=== PATIENT | female | born 1945 | race Caucasian/White ===

== ENCOUNTER 2024-12-15 19:19 | Inpatient (IN) | payer MEDICARE, BC, SELFPAY ==
[2024-12-15 19:20] VITALS: BP 136/79; PULSE 86; RESP 18; TEMP 36.4; O2SAT 96; BMI 22.4
--- NOTE | 2024-12-15 19:24 | ECG_ITS ---
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
--- NOTE | 2024-12-15 19:24 | CTR_ITS ---
PROCEDURE INFORMATION: Exam: CT Head Without Contrast Exam date and time: 12/15/2024 7:28 PM Age: 79 years old Clinical indication: Stroke-like symptoms; Dizziness/giddiness; Eleazar lower extremity weakness; Additional info: Symptoms of acute stroke TECHNIQUE: Imaging protocol: Computed tomography of the head without contrast. Radiation optimization: All CT scans at this facility use at least one of these dose optimization techniques: automated exposure control; mA and/or kV adjustment per patient size (includes targeted exams where dose is matched to clinical indication); or iterative reconstruction. Other technique: STROKE PROTOCOL was implemented. COMPARISON: No relevant prior studies available. RADIATION DOSE METRICS: Total DLP (mGy-cm): 1069.58 FINDINGS: Brain: There is mkqt-tf-tojztxip cerebral atrophy. There are wtlj-oq-ldqieord deep white matter microangiopathic ischemic changes. No acute hemorrhage is identified. No mass or mass effect is identified. Cerebral ventricles: Moderately dilated ventricles secondary to atrophy. Paranasal sinuses: Trace right maxillary mucosal thickening. The paranasal sinuses are otherwise clear. Mastoid air cells: The mastoid air cells are clear. Bones: Charly foramen magnum incidentally noted. No acute osseous abnormalities are seen. Soft tissues: The soft tissues are within normal limits. CT/CT head thrombolytic [id number] IMPRESSION: 1. No acute intracranial pathology. 2. Senescent changes. ASSESSMENT: ASPECTS ([place] Stroke Program Early CT Score) is 10.
--- NOTE | 2024-12-15 19:26 | ED_ITS ---
HPI - Neuro Symptoms/Deficit 2 General: Chief Complaint: Neuro Symptoms/Deficit Stated Complaint: n/v, high bs Time Seen by Provider: 12/15/24 19:20 Source: patient and EMS Mode of arrival: EMS Limitations: no limitations History of Present Illness: 79-year-old female who states that at 5 PM she started having severe dizziness states she had been having a hard time walking has been having nausea vomiting. She states it is much worse with movement she has a history of diabetes glucose with EMS was in the 300s. She denies any headache denies any speech problems denies any vision deficits Associated symptoms: Reports vertigo; Deny chest pain, headache(s), nausea or vomiting Related Data Home Medications ?Medication ?Instructions ?Recorded ?Confirmed atorvastatin 10 mg tablet 10 mg PO DAILY 01/06/2406/16 dapagliflozin propanediol 10 mg 10 mg PO DAILY 4 07/10/24 tablet (Farxiga) glyburide 2.5 mg tablet 2.5 mg PO DAILY 01/06/24 lisinopril 5 mg tablet 5 mg PO DAILY 01/06/2407/10 tirzepatide 5 mg/0.5 mL mg SUBCUT 07/10/24 07/10/24 subcutaneous pen injector (Mounjaro) Allergies Allergy/AdvReac Type Severity Reaction Status Date / Time No Known Allergies Allergy Verified 04/24/24 09:04 Review of Systems 2 Const: Denies: fever(s), chills, body aches or change in appetite Eyes: Denies: blurry vision or eye discomfort ENMT: Denies: throat pain or dental pain Card: Denies: chest pain Resp: Denies: dyspnea GI: Denies: abdominal pain, nausea, vomiting or diarrhea Musc: Denies: neck pain or back pain Skin/Breast: Denies: rash Neuro: Reports: difficulty walking, dizziness and vertigo; Denies: headache(s) PFSH ED 2 PFSH: Social History Smoking and tobacco/nicotine status: never used tobacco/nicotine NIH stroke score 2 NIHSS: Level Of Consciousness - 1a: 0 Level Of Consciousness Commands - 1c: Both Correct Best Gaze - 2: Normal Visual Starr - 3: No Visual Loss F acial Palsy - 4: Normal Motor Arm Right - 5: No Drift Motor Arm Left - 5: No Drift Motor Leg Right - 6: No Drift Motor Leg Left - 6: No Drift L imb Ataxia - 7: Absent Sensory - 8: Normal Best Language - 9: No Aphasia Dysarthia - 10: Normal Extinction And Inattention - 11: 0 Physical Exam 2 Const: COMMON NORMALS: no acute distress, patient oriented x3 and healthy appearing HENMT: COMMON NORMALS: normocephalic and atraumatic HEAD & SCALP: n ormocephalic and atraumatic Eye: COMMON NORMALS: Equal, round and reactive pupils present and EOMs intact bilaterally PUPIL: Yes Equal, round and reactive pupils present OTHER: Beating nystagmus when looking to the right Neck/C-Spine: COMMON NORMALS: full ROM and supple Chest: COMMONS NORMALS: normal inspection of the chest Resp: COMMON NORMALS: normal respiratory effort, No retractions, No use of accessory muscles and clear to auscultation bilaterally AUSCULTATION: clear to auscultation bilaterally Cardio: COMMON NORMALS: regular rate, regular rhythm and No murmurs present (Cardio) RATE: regular rate RHYTHM: regular rhythm Extremity: COMMON NORMALS: normal to inspection and full ROM Neuro: COMMON NORMALS: patient oriented x3, moves all extremities and no focal motor deficits CRANIAL NERVES: Yes CN normal except as noted SPEECH: s peech normal GAIT: Yes Ataxic gait present MOTOR EXAM: 5/5 motor strength present throughout Psych: COMMON NORMALS: mental status grossly normal, Normal thought process present and cooperative THOUGHT PROCESS: Normal thought process present Skin: COMMON NORMALS: no rashes or lesions noted and no wounds GENERAL SKIN EXAM: no rashes or lesions noted Course 2 Vital Signs: Vital signs: Vital Signs Temperature 97.5 F L 12/15/24 19:20 Pulse Rate 76 12/15/24 19:28 Respiratory Rate 20 H 12/15/24 19:28 Blood Pressure 125/77 12/15/24 19:28 Pulse Oximetry 95 12/15/24 19:28 Oxygen Delivery Me thod Room Air 12/15/24 19:28 MDM - Neuro Symptoms/Deficit Medical Decision Making Patient presents here with vertigo she been having some difficulty walking it is mainly with movement she has no vertigo at rest patient was evaluated by a neurologist at [facility] who believed it is likely peripheral did not recommend TNKase. Patient continues to feel weak and nauseous spoke to hospitalist will admit at this time Medical Records I reviewed the patient's medical records. Lab Data I reviewed the patient's lab results. 12/15/24 18:41 12/15/24 18:[address] 12/15/24 19:24 IMPRESSION: 1. No acute intracranial pathology. 2. Senescent changes. ASSESSMENT: ASPECTS ([place] Stroke Program Early CT Score) is 10. ADDENDUM: 12/15/241942 ADDENDUM: THIS REPORT CONTAINS FINDINGS THAT MAY BE CRITICAL TO PATIENT CARE. The findings were verbally communicated via telephone conference with DANIEL COONEY at 7:41 PM CDT on 12/15/2024. The findings were acknowledged and understood. Chest X-Ray 12/15/24 20:32 IMPRESSION: 1. 9 mm right lower lobe pulmonary nodule, likely calcified. Recommend comparison to prior imaging versus nonemergent CT chest as indicated. 2. No acute cardiopulmonary disease. Laboratory Results WBC 9.73 10^3/uL (3.29-11.43) 12/15/24 18:41 RBC 4.82 10^6/uL (3.85-5.65) 12/15/24 18:41 Hgb 13.90 g/dL (11.27-16.99) 12/15/24 18:41 Hct 41.2 % (36-47) 12/15/24 18:41 MCV 85.5 fl (85-98) 12/15/24 18:41 MCH 28.8 pg (27-33) 12/15/24 18:41 MCHC 33.7 g/dL (30-55) 12/15/24 18:41 RDW 12.8 % (12.1-15.1) 12/15/24 18:41 Plt Count 188 10^3/cmm (157-399) 12/15/24 18:41 MPV 10.6 fL (7.4-10.4) H 12/15/24 18:41 Neut % (Auto) 48.0 % 12/15/24 18:41 Lymph % (Auto) 41.7 % 12/15/24 18:41 [place] % (Auto) 6.6 % 12/15/24 18:41 Eos % (Auto) 2.8 % 12/15/24 18:41 Baso % (Auto) 0.6 % 12/15/24 18:41 Neut # (Auto) 4.67 10^3/uL (1.8-7.7) 12/15/24 18:41 Lymph # (Auto) 4.1 10^3/uL (0.8-4.8) 12/15/24 18:41 [place] # (Auto) 0.6 10^3/uL (0.2-0.9) 12/15/24 18:41 Eos # (Auto) 0.3 10^3/uL (0.0-0.8) 12/15/24 18:41 Baso # (Auto) 0.1 10^3/uL (0.0-0.1) 12/15/24 18:41 Nucleated RBC % (auto) 0 % 12/15/24 18:41 Nucleated RBCs # 0.0 /100WBC 12/15/24 18:41 PT 12.40 SECONDS (12.1-14.9) 12/15/24 18:41 INR 0.86 (0.8-1.2) 12/15/24 18:41 APTT 21.9 SECONDS (23.9-36.7) L 12/15/24 18:41 Sodium 133 mmol/L (136-145) L 12/15/24 18:41 Potassium 3.2 mmol/L (3.5-5.1) L 12/15/24 18:41 Chloride 95 mmol/L (98-107) L 12/15/24 18:41 Carbon Dioxide 18 mmol/L (22-29) L 12/15/24 18:41 Anion Gap 23.2 (5-19) H 12/15/24 18:41 BUN 22 mg/dL (8-23) 12/15/24 18:41 Creatinine 0.9 mg/dL (0.5-0.9) 12/15/24 18:41 GFR Calculation Not Reportable 12/15/24 18:41 Glucose 352 mg/dL (65-115) H 12/15/24 18:41 POC Glucose 299 mg/dL (70-110) H 12/15/24 19:21 Calculated Osmolality 293 mOsm/kg (285-295) 12/15/24 18:41 Calcium 9.5 mg/dL (8.5-10.5) 12/15/24 18:41 Total Bilirubin 0.6 mg/dL (0.15-1.2) 12/15/24 18:41 AST 23 U/L (0-32) 12/15/24 18:41 ALT 25 U/L (0-33) 12/15/24 18:41 Alkaline Phosphatase 125 U/L (35-105) H 12/15/24 18:41 NT-Pro-B Natriuret Pep 177 pg/mL (0-450) 12/15/24 18:41 Total Protein 7.1 g/dL (6.6-8.7) 12/15/24 18:41 Albumin 4.4 g/dL (3.5-5.2) 12/15/24 18:41 Globulin 2.7 g/dL (1.3-4.6) 12/15/24 18:41 All radiology interpretation(s) finalized by discharge EKG Data EKG 1: I personally reviewed and interpreted this EKG as follows: EKG interpretation date: 12/15/24 EKG interpretation time: 19:39 Interpretation: nsr hr [address] or t wave abnormalities qrs 96 qtc 456 Discharge Plan Discharge Patient Disposition: Admitted As Inpatient Clinical Impression: Vertigo, Weakness, Hyperglycemia Condition: Stable Coding Level of Care Code 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
[2024-12-15 19:28] VITALS: BP 125/77; BP 130/84; PULSE 76; RESP 20; O2SAT 95
[2024-12-15 19:30] LABS: Hematocrit 41.2 % (36-47); Hemoglobin 13.90 g/dL (11.27-16.99); Mean Corpuscular HGB Conc 33.7 g/dL (30-55); Mean Corpuscular Hemoglobin 28.8 pg (27-33); Mean Corpuscular Volume 85.5 fl (85-98); Nucleated Red Blood Cells % 0 %; Platelet Count 188 10^3/cmm (157-399); Red Blood Count 4.82 10^6/uL (3.85-5.65); White Blood Count 9.73 10^3/uL (3.29-11.43)
[2024-12-15] MEDS: ondansetron 2 mg/ML SDV 2 mL 4 MG IVP (19:40)
[2024-12-15 19:44] LABS: INR 0.86 (0.8-1.2); Partial Thromboplastin Time 21.9 SECONDS (23.9-36.7); Prothrombin Time 12.40 SECONDS (12.1-14.9)
[2024-12-15 19:49] LABS: Alanine Aminotransferase 25 U/L (0-33); Albumin Level 4.4 g/dL (3.5-5.2); Alkaline Phosphatase 125 U/L (35-105); Anion Gap 23.2 (5-19); Aspartate Amino Transferase 23 U/L (0-32); Blood Urea Nitrogen 22 mg/dL (8-23); Calcium 9.5 mg/dL (8.5-10.5); Carbon Dioxide 18 mmol/L (22-29); Chloride 95 mmol/L (98-107); Creatinine Clr Calc Pharmacy 46.9643; Globulin 2.7 g/dL (1.3-4.6); Glucose 352 mg/dL (65-115); Osmolality Calculated 293 mOsm/kg (285-295); Potassium 3.2 mmol/L (3.5-5.1); Sodium 133 mmol/L (136-145); Total Protein 7.1 g/dL (6.6-8.7)
[2024-12-15 20:30] VITALS: BP 123/64; PULSE 68; RESP 23; O2SAT 98
--- NOTE | 2024-12-15 20:32 | XRR_ITS ---
PROCEDURE INFORMATION: Exam: XR Chest Exam date and time: 12/15/2024 8:42 PM Age: 79 years old Clinical indication: Shortness of breath; Additional info: SOB TECHNIQUE: Imaging protocol: Radiologic exam of the chest. Views: 1 view. COMPARISON: No relevant prior studies available. FINDINGS: Lungs: No pulmonary consolidation. 9 mm right lower lobe pulmonary nodule, likely calcified. Mild interstitial prominence likely reflecting chronic lung change. Pleural spaces: No pleural effusion or pneumothorax. Heart/Mediastinum: Heart size is within normal limits. Vasculature: Atherosclerotic calcifications of the aorta are noted. Bones/joints: No acute osseous abnormalities are seen. XR/XR chest 1V portable [id number] IMPRESSION: 1. 9 mm right lower lobe pulmonary nodule, likely calcified. Recommend comparison to prior imaging versus nonemergent CT chest as indicated. 2. No acute cardiopulmonary disease.
[2024-12-15 21:00] VITALS: BP 127/87; PULSE 75; RESP 17; O2SAT 98
[2024-12-15 21:25] LABS: NT Pro B Type Natriuretic Pept 177 pg/mL (0-450)
[2024-12-15 21:59] LABS: PCP Screen Urine Negative (Negative)
[2024-12-15 22:00] VITALS: BP 125/78; PULSE 65; RESP 17; O2SAT 95
--- NOTE | 2024-12-15 22:07 | PM.HP ---
Providers/Chief Complaint Admitting Physician: CULLEN DON DO--- seen and evaluated before midnight Primary Care Provider: Jada Mcclure Chief Complaint: n/v, high bs History of Present Illness Nena Yusuf is a 79 year old female with medical history significant for diabetes high blood pressure a hyperlipidemia and benign positional vertigo no history of TIA no CVA, who had presented with an instant ambulatory dysfunction with dizziness unable to walk because of dizziness and did not seem to coordinate very well to walk because of the feeling of heart risks of passing out. Patient related that she had had similar episode but it kind of went away and did not live much longer. This time patient related that she was in the kitchen cooking and it just came over her where her legs could not move and she felt like she was, pass out and she leaned against the refrigerator because of much dizziness that came over her and she could not walk without having a wobbling gait. For this reason patient came to the emergency room for further optimization of care. The ED doctor called telestroke from [facility] and [facility] and they did not think patient was having any stroke and recommended MRI if the patient is not getting any better. I have been consulted to see the patient. I have seen and evaluated patient patient is doing much better he said patient had received meclizine from the emergency room and had also given antiemetic I called this morning have the nurse related to me she was able to walk and feel normal now. I had initiated some Valium and meclizine overnight and patient had done remarkably well and feeling okay. This being said I will not order MRI I will leave this up to the rounding team. Patient is feeling much better and feels that she will be able to go home. And because the patient had had nausea vomiting coming in and had had antiemetics will have the patient eat and see how she tolerates meal before anyone will discharge her home and also allow chance for the rounding team to see the patient and make sure that she is medically stable to go home. Review of Systems Narrative: System review upon 10 organ review were significant for ambulatory dysfunction what looks like a new rule vascular processes. This had terminated and patient is doing much better compared to the time she came to the emergency room Medications/Allergies Home Medications ?Medication ?Instructions ?Recorded ?Confirmed ?Last Taken ?Type atorvastatin 10 mg tablet 10 mg PO DAILY 01/06/24 07/10/24 Unknown History dapagliflozin propanediol 10 mg 10 mg PO DAILY 01/06/24 07/10/24 Unknown History tablet (Farxiga) glyburide 2.5 mg tablet 2.5 mg PO DAILY 01/06/24 07/10/24 Unknown History lisinopril 5 mg tablet 5 mg PO DAILY 01/06/24 07/10/24 Unknown History tirzepatide 5 mg/0.5 mL mg SUBCUT 07/10/24 07/10/24 Unknown History subcutaneous pen injector (Mounjaro) Allergies Allergy/AdvReac Type Severity Reaction Status Date / Time No Known Allergies Allergy Verified 04/24/24 09:04 PFSH Acute PFSH: Medical History (Updated 12/16/24 @ 06:24 by Cullen Don MD) Diabetes Social History Smoking and tobacco/nicotine status: never used tobacco/nicotine Vitals/I&O/Wt Last Vital Signs Temp 97.5 F L 12/15/24 19:20 Pulse 76 12/15/24 19:28 Resp 20 H 12/15/24 19:28 BP 125/77 12/15/24 19:28 Pulse Ox 95 12/15/24 19:28 O2 Del Method Room Air 12/15/24 19:28 Weight last 48 hrs Weight 61.235 kg Physical Exam Narrative: General The patient looks well in no apparent distress at this time compared to admission at presentation. HEENT normocephalic atraumatic neck neck is supple cardiovascular heart is regular lungs are pretty much clear abdomen soft nontender nondistended unremarkable extremities are intact no edema has good pulses neurology he has no focality lab studies lab studies reviewed and noted Data 12/16/24 05:44 12/15/24 18:41 A&P Assessment and plan 1. Weakness: Patient has generalized weakness and feeling much better after a restful night sleep Will continue to monitor and optimize Patient is a ED hold because of lack of bed 2. Vertigo: Leading diagnosis is benign positional vertigo at this time Patient is doing better and through the night Since patient is improving I am not get an MRI at this time because this was recommended if patient is not improving I will leave the final decision for the rounding team if they feel the patient needs to have an MRI they can do so. Patient had gotten up ambulated with the nurse this morning and feeling that he is doing okay Patient is on meclizine and Valium as prescribed and this had helped the patient at this time This is not the first time patient is having this event must continue to watch closely and optimize Nausea and vomiting has stopped must make sure patient is tolerating food before being discharged. 3. Hyperglycemia: Continue patient home medication patient did not eat yesterday for dinner Cautious and keep patient euglycemic 4. Nausea and vomiting: Patient responded to antiemetic May feed this patient this morning and see how patient does Patient able to tolerate oral and doing okay they have primary team who discharged when medically stable and if they do not feel that patient needs to have an MRI MRI was recommended if patient was not improving or doing well. Patient is at this time Continue to treat and optimize Plan: GI and DVT prophylaxis in place PDMP PDMP Reviewed: Last Reviewed 12/16/24 06:26 by Cullen Don MD Attestations Medical Necessity Statement*: Patient had had nausea and vomiting with ambulatory dysfunction associated with dizziness must need at least 2 midnights for optimization of care unless patient gets better and quicker prior to that time Coding Level of Care Code 37992 Diagnoses Weakness R53.1 Vertigo R42 Hyperglycemia R73.9 Nausea and vomiting R11.2 Time Spent (min) 60
[2024-12-15 22:15] LABS: Add Urine Microscopic? YES; Glucose Urine UA 3+ (Normal); Nitrate Urine Negative (Negative); Specific Gravity, Urine 1.030 (1.005-1.030)
[2024-12-15] MEDS: pantoprazole 40 mg SDV IVP (23:21)
[2024-12-16] VITALS: BP 116/70; PULSE 69; RESP 14; O2SAT 97
[2024-12-16 04:00] VITALS: BP 120/60; PULSE 60; RESP 13; O2SAT 96
[2024-12-16 06:02] LABS: Hematocrit 36.4 % (36-47); Hemoglobin 11.90 g/dL (11.27-16.99); Mean Corpuscular HGB Conc 32.7 g/dL (30-55); Mean Corpuscular Hemoglobin 28.7 pg (27-33); Mean Corpuscular Volume 87.7 fl (85-98); Nucleated Red Blood Cells % 0 %; Platelet Count 156 10^3/cmm (157-399); Red Blood Count 4.15 10^6/uL (3.85-5.65); White Blood Count 8.23 10^3/uL (3.29-11.43)
[2024-12-16 06:22] LABS: Alanine Aminotransferase 17 U/L (0-33); Albumin Level 3.3 g/dL (3.5-5.2); Alkaline Phosphatase 102 U/L (35-105); Anion Gap 14.3 (5-19); Aspartate Amino Transferase 18 U/L (0-32); Blood Urea Nitrogen 17 mg/dL (8-23); Calcium 8.8 mg/dL (8.5-10.5); Carbon Dioxide 23 mmol/L (22-29); Chloride 106 mmol/L (98-107); Creatinine Clr Calc Pharmacy 52.8348; Globulin 2.1 g/dL (1.3-4.6); Glucose 157 mg/dL (65-115); Magnesium 2.0 mg/dL (1.7-2.3); Osmolality Calculated 293 mOsm/kg (285-295); Potassium 4.3 mmol/L (3.5-5.1); Sodium 139 mmol/L (136-145); Total Protein 5.4 g/dL (6.6-8.7)
--- NOTE | 2024-12-16 07:09 | PC.NURSE ---
THIS NURSE ASSUMED CARE @ [id number].
--- NOTE | 2024-12-16 08:24 | PC.NURSE ---
PATIENT UP TO BEDSIDE COMMODE. PATIENT STILL DIZZY WHEN GETTING UP. TECH AT BEDSIDE STATES SHE STUMBLED WHEN STANDING.
[2024-12-16 09:31] VITALS: BP 133/79; PULSE 68; RESP 16; O2SAT 98
[2024-12-16] MEDS: ATORVASTATIN 10 MG TABLET PO (09:34)
--- NOTE | 2024-12-16 09:38 | PC.NURSE ---
PATIENT REFUSING HEPARIN UNTIL SHE SPEAKS TO HER PROVIDER.
--- NOTE | 2024-12-16 11:09 | MR_ITS ---
WS: [id number] MRI HEAD WITHOUT CONTRAST TECHNIQUE: Sagittal T1, T2 axial, T2 axial FLAIR, axial and coronal T1 images, axial susceptibility weighted imaging, axial diffusion weighted images, and coronal T2 images were obtained. CLINICAL INFORMATION: assess for posterior circulation stroke COMPARISON: CT 12/15/24 FINDINGS: No evidence of restricted diffusion to suggest acute ischemia. Ventricular system and basal cisterns are patent. Moderate to advanced small vessel changes. Mild parenchymal volume loss. Normal vascular flow voids at the skull base. No extra-axial fluid collections. Mild mucosal thickening in the ethmoid air cells. Mastoid air cells are well aerated. No hemosiderin on the susceptibility weighted images. Normal optic chiasm and pituitary infundibulum. Moderate symmetric atrophy temporal lobes and hippocampal formations. Incidental sheila cisterna magna. MR/MR head wo con* [id number] IMPRESSION: 1. No evidence of restricted diffusion to suggest acute ischemia. 2. Moderate to advanced small vessel changes with mild parenchymal volume loss . 3. No hemosiderin on the susceptibility weighted images. 4. No other acute findings.
[2024-12-16 13:44] VITALS: BP 128/72; BP 132/63; BP 143/72; PULSE 62; PULSE 70; PULSE 72
[2024-12-16 13:45] VITALS: BP 143/72; PULSE 72; O2SAT 96
--- NOTE | 2024-12-16 13:46 | PC.NURSE ---
PATIENT ABLE TO AMBULATE AROUND ROOM AND TO RESTROOM WITHOUT DIFFICULTY OR DIZZINESS.
[2024-12-16 13:51] VITALS: BP 143/72; PULSE 66; O2SAT 99
--- NOTE | 2024-12-16 15:07 | P.DS_ITS ---
Discharge Providers Date of Admission: 12/15/24 21:08 Date of Discharge: December 16, 2024 Attending Provider at Admission: Doreen Santos MD Attending Provider at Discharge: Yanet Ascencio MD Primary Care Provider: Jada Mcclure Diagnoses at Discharge Discharge Diagnosis 1. Weakness: 2. Vertigo: 3. Hyperglycemia: 4. Nausea and vomiting: Reason for Visit Reason for Visit: n/v, high bs Brief History: Nena Yusuf is a 79 year old female with medical history significant for diabetes high blood pressure a hyperlipidemia and benign positional vertigo no history of TIA no CVA, presented to the hospital last night with chief complaints of dizziness and incoordination. She states that she has had episodic dizziness on and off for about a year. Her symptoms appear to have started about a year ago after having had what appears to be a middle ear infection as she reported hearing loss at the same time. Initially a stroke code was called upon presentation to the emergency room, it appears stroke team was consulted, stroke was ruled out therefore patient did not receive any thrombolysis. Patient received a trial of meclizine and antiemetics in the emergency room following which patient's symptoms improved. She had also received some Valium overnight. Orthostatic vital signs were noted to be normal. Patient denied any loss of consciousness. MRI of the brain was completed to rule out any posterior circulation stroke and the study was negative for the same. Patient was able to get out of bed and walk this morning with minimal discomfort. She did report some persisting mild intermittent dizziness for which oral meclizine prescription was provided at discharge. Potentially symptoms may be related to inner ear pathology given also reported hearing loss in the right ear. Referral has been provided to ENT as an outpatient. She is being discharged today in improved condition. Physical Exam Narrative: General: No acute distress, AO x3 HEENT: PERRLA, pupils bilaterally equal and reactive, pallors not present Chest: Normal vesicular breath sounds, no added sounds, equal good air entry bilaterally CVS: S1-S2 regular, no murmurs, no tachycardia, no gallops, no rubs Abdomen: Soft, nontender, no organomegaly, bowel sounds present Neuro: No focal deficits, no facial deformity, AO x3, power 5/5 in all limbs Discharge Data Studies Completed and Pending Completed Studies During Hospitalization Category Date Time Status CT head thrombolytic 23501 Stat Cat Scan 12/15/24 19:24 Completed CXRP [XR chest 1V portable [id number]] Stat Exams 12/15/24 20:32 Completed MR head wo con* [id number] Routine MRI 12/16/24 11:09 Completed Radiology Impressions Head CT 12/15/24 19:24 IMPRESSION: 1. No acute intracranial pathology. 2. Senescent changes. ASSESSMENT: ASPECTS ([place] Stroke Program Early CT Score) is 10. ADDENDUM: 12/15/241942 ADDENDUM: THIS REPORT CONTAINS FINDINGS THAT MAY BE CRITICAL TO PATIENT CARE. The findings were verbally communicated via telephone conference with DANIEL COONEY at 7:41 PM CDT on 12/15/2024. The findings were acknowledged and understood. Chest X-Ray 12/15/24 20:32 IMPRESSION: 1. 9 mm right lower lobe pulmonary nodule, likely calcified. Recommend comparison to prior imaging versus nonemergent CT chest as indicated. 2. No acute cardiopulmonary disease. Head MRI 12/16/24 11:09 IMPRESSION: 1. No evidence of restricted diffusion to suggest acute ischemia. 2. Moderate to advanced small vessel changes with mild parenchymal volume loss. 3. No hemosiderin on the susceptibility weighted images. 4. No other acute findings. Laboratory Results WBC 8.23 10^3/uL (3.29-11.43) 12/16/24 05:44 RBC 4.15 10^6/uL (3.85-5.65) 12/16/24 05:44 Hgb 11.90 g/dL (11.27-16.99) 12/16/24 05:44 Hct 36.4 % (36-47) 12/16/24 05:44 MCV 87.7 fl (85-98) 12/16/24 05:44 MCH 28.7 pg (27-33) 12/16/24 05:44 MCHC 32.7 g/dL (30-55) 12/16/24 05:44 RDW 12.9 % (12.1-15.1) 12/16/24 05:44 Plt Count 156 10^3/cmm (157-399) L 12/16/24 05:44 MPV 10.5 fL (7.4-10.4) H 12/16/24 05:44 Neut % (Auto) 66.2 % 12/16/24 05:44 Lymph % (Auto) 25.5 % 12/16/24 05:44 [place] % (Auto) 6.9 % 12/16/24 05:44 Eos % (Auto) 0.5 % 12/16/24 05:44 Baso % (Auto) 0.5 % 12/16/24 05:44 Neut # (Auto) 5.45 10^3/uL (1.8-7.7) 12/16/24 05:44 Lymph # (Auto) 2.1 10^3/uL (0.8-4.8) 12/16/24 05:44 [place] # (Auto) 0.6 10^3/uL (0.2-0.9) 12/16/24 05:44 Eos # (Auto) 0.0 10^3/uL (0.0-0.8) 12/16/24 05:44 Baso # (Auto) 0.0 10^3/uL (0.0-0.1) 12/16/24 05:44 Nucleated RBC % (auto) 0 % 12/16/24 05:44 Nucleated RBCs # 0.0 /100WBC 12/16/24 05:44 PT 12.40 SECONDS (12.1-14.9) 12/15/24 18:41 INR 0.86 (0.8-1.2) 12/15/24 18:41 APTT 21.9 SECONDS (23.9-36.7) L 12/15/24 18:41 Sodium 139 mmol/L (136-145) 12/16/24 05:44 Potassium 4.3 mmol/L (3.5-5.1) 12/16/24 05:44 Chloride 106 mmol/L (98-107) 12/16/24 05:44 Carbon Dioxide 23 mmol/L (22-29) 12/16/24 05:44 Anion Gap 14.3 (5-19) 12/16/24 05:44 BUN 17 mg/dL (8-23) 12/16/24 05:44 Creatinine 0.8 mg/dL (0.5-0.9) 12/16/24 05:44 GFR Calculation Not Reportable 12/16/24 05:44 Glucose 157 mg/dL (65-115) H 12/16/24 05:44 POC Glucose 213 mg/dL (70-110) H 12/16/24 12:26 Calculated Osmolality 293 mOsm/kg (285-295) 12/16/24 05:44 Calcium 8.8 mg/dL (8.5-10.5) 12/16/24 05:44 Phosphorus 4.0 mg/dL (2.5-4.5) 12/16/24 05:44 Magnesium 2.0 mg/dL (1.7-2.3) 12/16/24 05:44 Total Bilirubin 0.5 mg/dL (0.15-1.2) 12/16/24 05:44 AST 18 U/L (0-32) 12/16/24 05:44 ALT 17 U/L (0-33) 12/16/24 05:44 Alkaline Phosphatase 102 U/L (35-105) 12/16/24 05:44 NT-Pro-B Natriuret Pep 177 pg/mL (0-450) 12/15/24 18:41 Total Protein 5.4 g/dL (6.6-8.7) L D 12/16/24 05:44 Albumin 3.3 g/dL (3.5-5.2) L 12/16/24 05:44 Globulin 2.1 g/dL (1.3-4.6) 12/16/24 05:44 Urine Color Yellow (Yellow) 12/15/24 21:40 Urine Appearance Clear (CLEAR) 12/15/24 21:40 Urine pH 6.0 (5-7) 12/15/24 21:40 Ur Specific [place] 1.030 (1.005-1.030) 12/15/24 21:40 Urine Protein Negative (Negative) 12/15/24 21:40 Urine Glucose (UA) 3+ (Normal) H 12/15/24 21:40 Urine Ketones 1+ (Negative) H 12/15/24 21:40 Urine Blood Negative (Negative) 12/15/24 21:40 Urine Nitrate Negative (Negative) 12/15/24 21:40 Urine Bilirubin Negative (Negative) 12/15/24 21:40 Urine Urobilinogen 0.2 mg/dL (Negative) 12/15/24 21:40 Ur Leukocyte Esterase Negative (Negative) 12/15/24 21:40 Urine RBC 0-2 /hpf (0-2) 12/15/24 21:40 Urine WBC 0-5 /hpf (0-5) 12/15/24 21:40 Ur Squamous Epith Cells 0-5 /hpf (0-5) 12/15/24 21:40 Amorphous Sediment Not Reportable 12/15/24 21:40 Urine Bacteria None seen /hpf (NONE) 12/15/24 21:40 Hyaline Casts 0-4 /lpf H 12/15/24 21:40 Urine Opiates Screen Negative ng/mL (Negative) 12/15/24 21:40 Ur Barbiturates Screen Negative ng/mL (Negative) 12/15/24 21:40 Ur Phencyclidine Scrn Negative ng/mL (Negative) 12/15/24 21:40 Ur Amphetamines Screen Negative ng/mL (Negative) 12/15/24 21:40 U Benzodiazepines Scrn Negative ng/mL (Negative) 12/15/24 21:40 Urine Cocaine Screen Negative ng/mL (Negative) 12/15/24 21:40 U Marijuana (THC) Screen Negative ng/mL (Negative) 12/15/24 21:40 Vitals Last Vital Signs Temp 97.5 F L 12/15/24 19:20 Pulse 66 12/16/24 13:51 Resp 16 12/16/24 09:31 BP 143/72 12/16/24 13:51 Pulse Ox 99 12/16/24 13:51 O2 Del Method Room Air 12/16/24 13:45 Discharge Plan Discharge Patient Disposition: Home Condition: Stable Prescriptions: New meclizine 25 mg tablet 25 mg PO TID PRN (Reason: dizziness) Qty: 30 0RF Continued dapagliflozin propanediol [Farxiga] 10 mg tablet 10 mg PO DAILY lisinopril 5 mg tablet 5 mg PO DAILY multivitamin Tablet 1 tab PO QAM magnesium 200 mg Tablet 200 mg PO BID cinnamon bark [Cinnamon] 500 mg Capsule 500 mg PO TID cholecalciferol (vitamin D3) [Vitamin D3] 50 mcg (2,000 unit) Tablet 50 mcg PO DAILY insulin glargine-yfgn 100 unit/mL (3 mL) insulin pen 18 unit SUBCUT BID Ozempic 0.25 mg or 0.5 mg (2 mg/3 mL) pen injector 0.25 mg SUBCUT Q7D Rx Instructions: Sundays berberine chloride 500 mg Capsule 500 mg PO BID Discharge Order = DC NOW: Discharge Order (Routine); Ordered 12/16/24 Ordered By: Yanet Ascencio Referrals: Darwin Mcgregro MD [Physician, Ear, Nose, Throat] Referral Note: dizziness, hearing loss Jada Mcclure [Primary Care Provider, Wound Care] Discharge Diet: Usual diet Discharge Activity: Increase activity as tolerated Patient Instructions: Opioid Safety, Patient Portal & Michelle Instructions Discharge Attestations Time Spent in Discharge Care*: greater than 30 min Quality Metrics Clinical Quality Measures [ No reported AMI, CVA or VTE this stay] Coding Level of Care Code Acute Code for Chg Fwd Diagnoses Weakness R53.1 Vertigo R42 Hyperglycemia R73.9 Nausea and vomiting R11.2
== END 2024-12-16 13:58 | disposition home or self-care (01) | DRG 149 ==
LOC: ER 22:13 → ER IP 23:48
PROVIDERS: Admitting Provider Internal Medicine; Emergency Provider Emergency Medicine; PCP Nurse Practitioner Family; Visit Provider Student in an Organized Health Care Education/Training Program
DX: H81.10 Benign paroxysmal vertigo, unspecified ear (principal); R53.1 Weakness; E11.65 Type 2 diabetes mellitus with hyperglycemia; I10 Essential (primary) hypertension; E78.5 Hyperlipidemia, unspecified; H91.91 Unspecified hearing loss, right ear; Z79.4 Long term (current) use of insulin; Z79.85 Long-term (current) use of injectable non-insulin antidiabetic drugs
CPT/HCPCS: 36415; 36416; 70450; 70551; 71045; 80053; 80306; 81001; 82962; 83735; 83880; 84100; 85025; 85610; 85730; 93005; 96372; 99285; J1815; J2405; J2470; J7030; J7120; J8597; J9999